=== PATIENT | male | born 1970 | race Caucasian/White ===

== ENCOUNTER 2018-02-28 15:33 | Emergency (ER) | payer OTHER, SELFPAY ==
[~2018-02-28 15:33] MED LIST: Iopamidol 370 76% 125 ML VIAL FS ONE
[2018-02-28] MEDS ORDERED: Lorazepam 2 MG/ML VIAL ONE (16:02)
[2018-02-28] MEDS ORDERED: Ketorolac Tromethamine 30 MG/ML VIAL ONE (16:03)
[2018-02-28] MEDS ORDERED: Morphine 10 MG/ML VIAL ONE (16:03)
[2018-02-28] MEDS ORDERED: Ondansetron HCl/PF 4 MG/2 ML Vial ONE (16:03)
[2018-02-28] MEDS ORDERED: Aspirin 325 MG TAB ONE (16:03)
[2018-02-28 16:15] LABS: INR-International Normal Ratio 0.9; PTT 26.8 SEC (22.9-36.1); Prothrombin Time 12.6 SEC (12.0-14.7)
[2018-02-28 16:17] LABS: Red Blood Cell (RBC) Count 4.97 mill/uL (4.70-6.10); White Blood Cell (WBC) Count 12.5 thou/uL (4.8-10.8)
[2018-02-28 16:18] LABS: #Basophils 0.1 thou/uL (0.0-0.2); #Eosinphils 0.2 thou/uL (0.0-0.7); #Monocytes 0.4 thou/uL (0.11-0.59); #Neutrophils 8.9 thou/uL (1.40-6.50); %Eosinophils 1.8 % (0.0-10.0); %Lymphocytes 22.8 % (21.0-51.0); %Monocytes 3.1 % (0.0-10.0); %Neutrophils 71.3 % (42.0-75.0); Hemoglobin 15.3 g/dL (14.0-18.0); MDiff Complete? YES; Manual Diff?? NO; Mean Corpuscular HGB CONC 34.8 g/dL (32.0-36.0); Mean Corpuscular Hemoglobin 30.8 pg (27.0-31.0); Mean Corpuscular Volume 88.4 fL (80.0-94.0); Mean Platelet Volume 9.4 fL (7.4-10.4); Platelet Count 217 thou/uL (130-400); RBC Distribution Width 12.1 % (11.5-14.5)
[2018-02-28 16:19] LABS: ALT (SGPT) 32 U/L (8-55); AST (SGOT) 21 U/L (5-34); Albumin 4.5 g/dL (3.5-5.0); Alkaline Phosphatase 64 U/L (40-150); Anion Gap 17 mmol/L (10-20); BUN (Urea Nitrogen) 25 mg/dL (8.9-20.6); Bilirubin, Total 0.4 mg/dL (0.2-1.2); CK (CPK) 180 U/L (30-200); Calc. Creatinine Clearance 0 mL/min (70-130); Calcium 9.8 mg/dL (7.8-10.44); Carbon Dioxide 25 mmol/L (22-29); Chloride 103 mmol/L (98-107); Estimated GFR-MDRD 33; Globulin 3.1 g/dL (2.4-3.5); Glucose 99 mg/dL (70-105); Lipase 34 U/L (8-78); Potassium 4.3 mmol/L (3.5-5.1); Protein, Total 7.6 g/dL (6.0-8.3); Sodium 141 mmol/L (136-145)
[2018-02-28 16:27] LABS: CKMB 1.9 ng/mL (0-6.6); Troponin I Less than 0.010 ng/mL (< 0.028)
[2018-02-28 16:45] LABS: Bacteria/HPF None Seen HPF (None Seen); Bilirubin Negative (Negative); Blood, Urine Negative (Negative); Clarity Clear (Clear); Glucose, Urine (Dipstick) Negative (Negative); Leukocyte Negative (Negative); Nitrite Negative (Negative); Protein, Urine (Dipstick) Negative (Neg-Trace); RBC/HPF None Seen HPF (0-3); Specific Gravity, Urine 1.025 (1.005-1.030); Squamous Epithelial 0-3 HPF (0-3); Urobilinogen 0.2 mg/dL (0.2-1.0); WBC/HPF None Seen HPF (0-3); pH, Urine 5.5 (5.0-9.0)
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
[2018-03-01 08:07] LABS: #Lymphocytes 2.8 thou/uL (1.20-3.40)
== END 2018-02-28 20:42 | disposition home or self-care (01) ==
LOC: MADERS 15:33
DX: T07.XXXA Unspecified multiple injuries, initial encounter (principal); N18.2 Chronic kidney disease, stage 2 (mild); F17.210 Nicotine dependence, cigarettes, uncomplicated; V69.9XXA Occupant (driver) (passenger) of heavy transport vehicle injured in unspecified traffic accident, initial encounter
CPT/HCPCS: 36415; 70450; 71260; 72125; 74177; 80053; 81001; 82550; 82553; 83690; 83880; 84484; 85025; 85610; 85730; 93005; 94760; 96374; 96375; J1885; J2060; J2270; J2405